=== PATIENT | female | born 1980 | race Two or more races ===

== ENCOUNTER 2017-09-10 19:54 | Emergency (ER) | payer SELFPAY ==
[~2017-09-10] VITALS: Ht 167.6 cm; Wt 70.8 kg
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
[2017-09-10] MEDS ORDERED: ALBUTEROL SULFATE 8GM INHALER. INH ONE (20:30)
[2017-09-10 22:05] LABS: BGAS PH 7.49 (7.35-7.45)
[2017-09-10] MEDS ORDERED: oxyCODONE/APAP 5/325 1 TAB TABLET PO ONE (22:15)
[2017-09-10 23:00] VITALS: BP 129/74
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
== END 2017-09-10 23:00 | disposition home or self-care (01) ==
LOC: ER 19:54
DX: J70.5 Respiratory conditions due to smoke inhalation (principal)
CPT/HCPCS: 36415; 71020; 82375; 82803; 99285; J7613

== ENCOUNTER 2018-05-22 16:41 | Emergency (ER) | payer SELFPAY ==
[~2018-05-22] VITALS: Ht 167.6 cm; Wt 72.6 kg
--- NOTE | 2018-05-22 17:32 | EKG ---
[address] [address] Test Date: 2018-05-22 Test Time: 16:55:36 Pat Name: PHOEBE ROTHMAN Department: Room: Gender: F [employer] Operator: : 1980 Requested By: CATE LEONE Order Number: [id number] Reading MD: Montrell Lopes MD Measurements Intervals [place] Rate: 76 P: 51 SC: 132 QRS: 56 QRSD: 72 T: 49 QT: 372 QTc: 423 Interpretive Statements SINUS RHYTHM Electronically Signed On 05-23-2018 7:24:50 CDT by Montrell Lopes MD
[2018-05-22 17:36] LABS: BASO # 0.2 x10^3/uL (0.0-0.2); BASO % 2 % (0-3); EOS # 0.2 x10^3/uL (0.0-0.7); EOS % 2 % (0-3); HEMATOCRIT 37.4 % (36.0-47.0); HEMOGLOBIN 12.2 g/dL (12.0-15.5); LYMPH # 2.9 x10^3/uL (1.0-4.8); LYMPH % 27 % (24-48); MEAN CORPUSCULAR HEMOGLOBIN 23 pg (25-35); MEAN CORPUSCULAR HGB CONC 33 g/dL (31-37); MEAN CORPUSCULAR VOLUME 70 fL (79-100); MONO # 0.7 x10^3/uL (0.0-1.1); MONO % 7 % (0-9); NEUT # 6.5 x10^3uL (1.8-7.7); NEUT % 62 % (31-73); PLATELET COUNT 366 x10^3/uL (140-400); RED BLOOD COUNT 5.32 x10^6/uL (3.50-5.40); RED CELL DISTRIBUTION WIDTH 27.6 % (11.5-14.5); WHITE BLOOD COUNT 10.5 x10^3/uL (4.0-11.0)
--- NOTE | 2018-05-22 17:42 | PHYS DOC ---
Past History Past Medical History: Asthma, Migraines, Seizure Past Surgical History: Appendectomy Alcohol Use: Rarely Drug Use: None Adult General Chief Complaint Chief Complaint: CHEST PAIN HPI HPI Patient is a 37-year-old female who presents with complaining of chest pain. Patient states she was diagnosed with PE recently and taking Xarelto for the last 3 weeks without missing care medication. Patient complaining of constant right lower chest pain for the last 2 days as a constant aching pain with episodes of sharp pain with taking deep breaths. Patient complaining of shortness of breath and dry cough like her previous episodes of PE and rated her pain 6/10. Patient denies palpitation, dizziness, nausea and vomiting, injury. Patient was seen by her primary care physician and had a shot of Toradol and sent to ER for more evaluation. Patient state Toradol did not help for her pain. Review of Systems Review of Systems Constitutional: Denies fever or chills [] Eyes: Denies change in visual acuity, redness, or eye pain [] HENT: Denies nasal congestion or sore throat [] Respiratory: Reports cough and shortness of breath] Cardiovascular: No additional information not addressed in HPI [] GI: Denies abdominal pain, nausea, vomiting, bloody stools or diarrhea [] : Denies dysuria or hematuria [] Musculoskeletal: Denies back pain or joint pain [] Integument: Denies rash or skin lesions [] Neurologic: Denies headache, focal weakness or sensory changes [] Endocrine: Denies polyuria or polydipsia [] All other systems were reviewed and found to be within normal limits, except as documented in this note. Current Medications Current Medications Current Medications Medications (Trade) Dose Ordered Sig/Darya Start Time Stop Time Status Last Admin Dose Admin Fentanyl Citrate (Fentanyl 2ml Vial) 50 mcg 1X ONCE 05/22/18 17:45 05/22/18 17:46 Ondansetron HCl (Zofran) 4 mg 1X ONCE 05/22/18 17:45 05/22/18 17:46 Allergies Allergies Allergies Coded Allergies Type Severity Reaction Last Updated Verified tramadol Allergy Mild 05/22/18 Yes Physical Exam Physical Exam Constitutional: Well developed, well nourished, mild distress, non-toxic appearance. [] HENT: Normocephalic, atraumatic, oropharynx moist, no oral exudates, nose normal. [] Eyes: PERRLA, EOMI, conjunctiva normal, no discharge. [] Neck: Normal range of motion, no tenderness, supple, no stridor. [] Cardiovascular:Heart rate regular rhythm, no murmur [] Lungs & Thorax: Bilateral breath sounds clear to auscultation [] Abdomen: Bowel sounds normal, soft, no tenderness, no masses, no pulsatile masses. [] Skin: Warm, dry, no erythema, no rash. [] Back: No tenderness, no CVA tenderness. [] Extremities: No tenderness, no cyanosis, no clubbing, ROM intact, no edema. [] Neurologic: Alert and oriented X 3, normal motor function, normal sensory function, no focal deficits noted. [] Psychologic: Affect normal, judgement normal, mood normal. [] Current Patient Data Vital Signs Vital Signs Date Time Temp Pulse Resp B/P (MAP) Pulse Ox O2 Delivery O2 Flow Rate FiO2 05/22/18 17:22 98.2 80 20 100 Room Air Lab Results Laboratory Tests Test 05/22/18 17:20 White Blood Count 10.5 x10^3/uL (4.0-11.0) Red Blood Count 5.32 x10^6/uL (3.50-5.40) Hemoglobin 12.2 g/dL (12.0-15.5) Hematocrit 37.4 % (36.0-47.0) Mean Corpuscular Volume 70 fL (79-100) L Mean Corpuscular Hemoglobin 23 pg (25-35) L Mean Corpuscular Hemoglobin Concent 33 g/dL (31-37) Red Cell Distribution Width 27.6 % (11.5-14.5) H Platelet Count 366 x10^3/uL (140-400) Neutrophils (%) (Auto) 62 % (31-73) Lymphocytes (%) (Auto) 27 % (24-48) Monocytes (%) (Auto) 7 % (0-9) Eosinophils (%) (Auto) 2 % (0-3) Basophils (%) (Auto) 2 % (0-3) Neutrophils # (Auto) 6.5 x10^3uL (1.8-7.7) Lymphocytes # (Auto) 2.9 x10^3/uL (1.0-4.8) Monocytes # (Auto) 0.7 x10^3/uL (0.0-1.1) Eosinophils # (Auto) 0.2 x10^3/uL (0.0-0.7) Basophils # (Auto) 0.2 x10^3/uL (0.0-0.2) EKG EKG EKG interpreted by me. EKG at 1655 showed sinus rhythm at rate of 76, left atrial abnormality, no acute ST and T-wave abnormalities[] Radiology/Procedures Radiology/Procedures [[address] [address] IMAGING REPORT Signed PATIENT: PHOEBE ROTHMAN ACCOUNT: [id number] : 1980 LOCATION: ER AGE: 37 SEX: F EXAM STATUS: PRE ER ORD. PHYSICIAN: CATE LEONE MD REASON: Chest pain, right sided PROCEDURE: CHEST AP ONLY PROCEDURE: CHEST AP ONLY CLINICAL INDICATION: Chest pain, right sided COMPARISON: 09/10/2017 FINDINGS: No pneumothorax identified. Cardiac and mediastinal contours unremarkable. No pulmonary consolidation or acute airspace disease. No acute osseous abnormalities identified. IMPRESSION: No pulmonary consolidation or acute airspace disease. Electronically signed by: Karan Figueroa DO (05/22/2018 6:26 PM) [facility] DICTATED AND SIGNED BY: KARAN FIGUEROA DO DATE: 05/22/181824 CC: PATRICK DENTON DO; CATE LEONE MD ~ ] Course & Med Decision Making Course & Med Decision Making Pertinent Labs and Imaging studies reviewed. (See chart for details) Evaluation of patient in ER showed 37-year-old female patient with complaining of right chest wall pain for the last 2 days and history of recent PE on Xarelto. Patient had negative d-dimer and physical exam and labs. Plan discharge patient home with diagnose of chest wall pain and recent PE. Dragon Disclaimer Dragon Disclaimer This electronic medical record was generated, in whole or in part, using a voice recognition dictation system. Departure Departure: Impression: Primary Impression: Right-sided chest pain Additional Impression: History of pulmonary embolism Disposition: HOME, SELF-CARE (@ 1825) Condition: IMPROVED Referrals: PATRICK DENTON DO (PCP) Patient Instructions: Chest Wall Pain, Pulmonary Embolus Additional Instructions: Drink plenty of liquids Follow-up with your primary care physician in 2-3 days Return to ER if not getting better Scripts Hydrocodone Bit/Acetaminophen (NORCO 5-325 TABLET) 1 Each Tablet 1 TAB PO PRN Q6HRS PRN for PAIN, #10 TAB 0 Refills Prov: CATE LEONE MD 05/22/18 Problem Qualifiers CATE LEONE MD May 22, 2018 17:42
[2018-05-22] MEDS ORDERED: ONDANSETRON PF 4 MG/2 ML VIAL. IV ONE (17:45)
[2018-05-22 18:00] LABS: ALBUMIN 3.5 g/dL (3.4-5.0); ALBUMIN/GLOBULIN RATIO 0.7 (1.0-1.7); CALCIUM 9.1 mg/dL (8.5-10.1); CREATININE 0.9 mg/dL (0.6-1.0); GFR 70.8; POTASSIUM 3.9 mmol/L (3.5-5.1); TOTAL BILIRUBIN 0.4 mg/dL (0.2-1.0); TOTAL PROTEIN 8.2 g/dL (6.4-8.2)
[2018-05-22 18:11] LABS: BACTERIA,URINE 0 /HPF (0-FEW); BILIRUBIN,URINE NEG (NEG); CLARITY,URINE CLEAR; COLOR,URINE YELLOW; GLUCOSE,URINE NEG (NEG); NITRITE,URINE NEG (NEG); RBC,URINE RARE /HPF (0-2); SQUAMOUS EPITHELIAL CELL,UR OCC /LPF; UROBILINOGEN,URINE 0.2 mg/dL (0.2 mg/dL); WBC,URINE RARE /HPF (0-4)
[2018-05-22] MEDS ORDERED: HYDR-971 PO (18:23)
--- NOTE | 2018-05-22 18:29 | RAD ---
PROCEDURE: CHEST AP ONLY CLINICAL INDICATION: Chest pain, right sided COMPARISON: 09/10/2017 FINDINGS: No pneumothorax identified. Cardiac and mediastinal contours unremarkable. No pulmonary consolidation or acute airspace disease. No acute osseous abnormalities identified. IMPRESSION: No pulmonary consolidation or acute airspace disease. Electronically signed by: Karan Figueroa DO (05/22/2018 6:26 PM) [facility]
[2018-05-22 18:33] VITALS: BP 108/63
[2018-05-22 18:44] LABS: ANISOCYTOSIS MOD; HYPOCHROMIA MOD; MICROCYTOSIS MOD; PLT ESTIMATE ADEQUATE (ADEQUATE)
== END 2018-05-22 18:33 | disposition home or self-care (01) ==
LOC: ER 16:41
DX: R07.89 Other chest pain (principal); J45.909 Unspecified asthma, uncomplicated; G43.909 Migraine, unspecified, not intractable, without status migrainosus; Z86.711 Personal history of pulmonary embolism; Z88.6 Allergy status to analgesic agent
CPT/HCPCS: 36415; 71045; 80053; 81001; 81025; 82553; 83690; 83735; 83880; 84484; 85025; 85379; 85610; 85730; 93005; 96374; 96375; 99285; J2405; J3010

== ENCOUNTER → 2018-09-11 | Outpatient (CLI) | payer OTHER ==
[~2018-09-11] MED LIST: HYDR-3165 PO; IOHEXOL 300 MG/ML 75 ML VIAL. IV ONE
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
== END | disposition home or self-care (01) ==
LOC: CT 12:49
PROVIDERS: ATTEND Physician Assistant Medical
DX: R06.02 Shortness of breath (principal); Z86.711 Personal history of pulmonary embolism
CPT/HCPCS: 71275; Q9967